=== PATIENT | female | born 1970 | race Caucasian/White ===

== ENCOUNTER 2024-02-16 18:10 | Emergency (ER) | payer OTHER, SELFPAY ==
[2024-02-16 18:17] VITALS: BP 143/85; PULSE 74; RESP 18; TEMP 36.6; O2SAT 98; BMI 30.1
--- NOTE | 2024-02-16 19:35 | ED.ABDPAIN ---
HPI - Abdominal Pain General Time Seen by Provider: 19:35 Date Seen: 02/16/24 Chief Complaint: Abdominal Pain Stated Complaint: abdomen pain Time Seen by Provider: 02/16/24 18:23 Source: patient Mode of arrival: ambulatory Limitations: no limitations History of Present Illness HPI narrative: Lety is a very pleasant 53-year-old female with known history of diverticulitis who comes to the emergency room with abdominal pain. Patient noted that she has had intermittent left lower quadrant discomfort over the past 5-7 days but definitely has intensified over the last 48 hours. It is associated with nausea but no vomiting or diarrhea. She does feel somewhat distended. Patient notes that she had a ?failed colonoscopy? 10 years ago and has not had colonoscopy since that time. A she states that they were unable to get past the upper year: Which she is showing me to be the splenic flexure. Because of this she thought she was unable to have colonoscopies. She has not had a fever but has felt intermittently hot and cold. She has never had a in abscess or any perforation. She was last hospitalized with diverticulitis in 2021. However she tells me that she does have intermittent episodes of left lower quadrant pain every few months that persists for a few days. Patient has not had any pain relief with Tylenol. Patient is concerned that she will be getting a yeast infection with antibiotic administration. No dysuria or hematuria. Related Data Home Medications ?Medication ?Instructions ?Recorded ?Confirmed No Known Home Medications 02/16/24 02/16/24 Previous Rx's ?Medication ?Instructions ?Recorded amoxicillin 875 mg-potassium 1 tab PO Q12H #14 tabs 02/16/24 clavulanate 125 mg tablet fluconazole 150 mg tablet 150 mg PO ONCE 1 day #2 tabs 02/16/24 hydrocodone 5 mg-acetaminophen 325 1 tab PO Q4-6H PRN pain #14 tabs 02/16/24 mg tablet ondansetron 4 mg disintegrating 4 mg PO Q8-12H PRN nausea and 02/16/24 tablet vomiting #10 tabs Allergies Allergy/AdvReac Type Severity Reaction Status Date / Time Sulfa Antibiotics Allergy Unknown Hives Uncoded 02/16/24 21:26 Review of Systems Status of ROS Reports: 10 or more systems reviewed and unremarkable except as noted in History and below Const Reports: chills; Denies: fever PFSH PFSH Social History Smoking Status: Unknown if ever smoked How often do you have a drink containing alcohol: never How often do you have six or more drinks on one occasion: Never AUDIT-C Alcohol total score: 0 Non-prescribed substance use: denies use Exam Narrative: Exam Narrative: Alert and oriented. Nontoxic in appearance but clearly fatigue. Ext ears eyes nose clear. Lips are dry. Moist mucous membranes. Neck is supple. Heart with regular rate and rhythm and lungs are clear bilaterally. Abdomen shows tenderness left lower quadrant. No CVA tenderness with percussion. Moving all extremities. No lower extremity edema. Const: Vital Signs, click to edit/add: Vital Signs - 24 hr 02/16/24 18:17 02/16/24 21:00 02/16/24 22:59 Temperature 97.9 F Pulse Rate [Pulse Oximeter] 74 95 97 Respiratory Rate 18 16 16 Blood Pressure [Ri ght Upper Arm] 143/85 H 141/91 H 126/83 Pulse Oximetry 98 95 97 Oxygen Delivery Me thod Room Air Room Air Room Air Documenting provider has reviewed patient's vital signs: yes Course Course ED Course: Differential diagnosis includes but is not limited to diverticulitis, colitis, perforation, ovarian cyst, urinary tract infection, pyelonephritis. Will place IV give 1 L normal saline Toradol 15 mg and Zofran 4 mg. Plan on CBC, comprehensive panel, CRP, urinalysis as well as abdominal CT. Reevaluation(s) Reevaluation #1: Patient had minimal to moderate relief with Toradol. Will follow up with morphine 4 mg IV. Patient also noted to have diverticulitis without perforation or abscess on CT. White count reassuring at 10.65. However CRP is elevated at 3.1. Will give 1 dose Rocephin 1 g IV as well as morphine 4 mg IV. Reevaluation #2: Per nursing report patient feeling better after morphine. Vital Signs Vital signs: Initial Vital Signs Temperature 97.9 F 02/16/24 18:17 Temperature Source Temporal Artery Scan 02/16/24 18:17 Pulse Rate 74 02/16/24 18:17 Respiratory Rate 18 02/16/24 18:17 Blood Pressure 143/85 H 02/16/24 18:17 Blood Pressure Mean 104 02/16/24 18:17 Pulse Oximetry 98 02/16/24 18:17 Oxygen Delivery Method Room Air 02/16/24 18:17 Vital Signs Temperature 97.9 F 02/16/24 18:17 Pulse Rate 74 02/16/24 18:17 Respiratory Rate 18 02/16/24 18:17 Blood Pressure 143/85 H 02/16/24 18:17 Pulse Oximetry 98 02/16/24 18:17 Oxygen Delivery Method Room Air 02/16/24 18:17 Temperature 97.9 F 02/16/24 18:17 Pulse Rate 97 02/16/24 22:59 Respiratory Rate 16 02/16/24 22:59 Blood Pressure 126/83 02/16/24 22:59 Pulse Oximetry 97 02/16/24 22:59 Oxygen Delivery Method Room Air 02/16/24 22:59 Medications Administered Medications: Discontinued Medications Generic Name Dose Route Start Last Admin Trade Name Freq PRN Reason Stop Dose Admin Sodium Chloride 1,000 mls @ 1,000 mls/hr 02/16/24 20:18 02/16/24 22:56 0.9 % Sodium Chloride 1000 Ml IV 02/16/24 21:17 Infused .Q1H JOSIE Infusion Ceftriaxone Sodium 1 gm/ 100 mls @ 200 mls/hr 02/16/24 22:49 02/16/24 23:32 Sodium Chloride IVPB 02/16/24 22:50 Infused ONCE ONE Infusion Ketorolac Tromethamine 15 mg 02/16/24 20:17 02/16/24 21:00 Ketorolac 15 Mg/Ml Inj IVP 02/16/24 20:18 15 mg ONCE ONE Administration Morphine Sulfate 4 mg 02/16/24 22:49 02/16/24 22:55 Morphine 4 Mg/Ml Inj IVP 02/16/24 22:50 4 mg ONCE ONE Administration Ondansetron HCl 4 mg 02/16/24 20:17 02/16/24 21:00 Ondansetron 2 Mg/Ml Inj IVP 02/16/24 20:18 4 mg ONCE ONE Administration MDM - Abdominal Pain MDM Narrative Medical decision making narrative: 1. Diverticulitis-patient noted to have uncomplicated diverticulitis. No evidence of abscess or perforation. I have treated with 1 g of IV Rocephin and patient will be discharged home with Augmentin 875 p.o. b.i.d. x7 days. I would ask patient to follow-up with our surgeons for evaluation. She will also need a colonoscopy as she has not had 1 for 10 days and it sounds like she is having recurrent diverticulitis at least every few months. For discomfort would have her use ibuprofen as needed and have provided her with [place] 5/325 1-2 tabs p.o. q.4-6 hours p.r.n. pain 14. With no refills. Finally Zofran 4 mg ODT Q 8-12 hours p.r.n. 10. With no refills. These 3 prescriptions were sent to her pharmacy. 2. Disposition-home at this time. Recommend returning to the emergency room for worsening symptoms such as fever, vomiting, increasing pain. Lab Data Attestation: I reviewed the patient's lab results. Labs: Lab Results 02/16/24 02/16/24 Range/Units 20:30 20:45 WBC 10.65 (4.50-11.00) K/uL RBC 4.57 (4.00-5.20) m/uL Hgb 13.3 (12.0-16.0) gm/dL Hct 40.2 (33.0-51.0) % MCV 88 (80-100) fL MCH 29 (26-34) pg MCHC 33 (32-36) gm/dL RDW Coeff of Allie 13.0 (11.5-15.5) % Plt Count 180 (140-440) K/uL Neut % (Auto) 75.5 H (42.0-72.0) % Lymph % (Auto) 16.4 L (20-44) % Jenkins % (Auto) 6.4 (0.0-11.0) % Eos % (Auto) 0.6 (0.0-7.0) % Baso % (Auto) 0.1 (0.0-3.0) % Neut # (Auto) 8.00 H (1.7-7.0) K/uL Lymph # (Auto) 1.70 (0.90-2.90) K/uL Jenkins # (Auto) 0.70 (0.00-0.90) K/UL Eos # (Auto) 0.06 (0.00-0.50) K/uL Baso # (Auto) 0.01 (0.00-0.30) K/uL Abs Immat Gran (auto) 0.11 (0.00-0.30) K/uL Imm/Tot Granulo (auto) 1.0 % Sodium 138 (135-149) mmol/L Potassium 3.7 (3.6-5.1) mmol/L Chloride 105 (96-114) mmol/L Carbon Dioxide 29 (20-32) mmol/L Anion Gap 4 L (7-15) mEq/L BUN 22 (7-30) mg/dL Creatinine 0.9 (0.5-1.5) mg/dL Estimated Creat Clear 59.11 Estimated GFR 76 ml/min Glucose 94 (60-115) mg/dL Lactate 0.7 (0.5-1.9) mmol/L Calcium 9.2 (8.4-10.6) mg/dL Total Bilirubin 0.9 (0.1-1.5) mg/dL AST 29 (12-35) U/L ALT 22 (4-35) U/L Alkaline Phosphatase 105 (40-150) U/L C-Reactive Protein 3.1 H (0.5-1.0) mg/dL Total Protein 7.3 (6.0-8.3) g/dL Albumin 4.7 (3.3-5.0) g/dL Urine Color Yellow (Yellow) Urine Appearance Clear (Clear) Urine pH 6.5 (5.0-8.5) Ur Specific [place] 1.010 (1.000-1.030) Urine Protein Negative (Negative) Urine Glucose (UA) Negative (Negative) Urine Ketones Negative (Negative) Urine Blood Negative (Negative) Urine Nitrite Negative (Negative) Urine Bilirubin Negative (Negative) Urine Urobilinogen 0.2 (0.2-1.0) Ur Leukocyte Esterase Negative (Negative) Urine RBC 0-2 (0-2) Urine WBC 0-2 (0-5) Ur Squamous Epith Cells None (None-Few) Urine Bacteria None (None) Imaging Data CT scan - abdomen: Attestation: I have reviewed the pertinent imaging results. Radiologist's impression: Lower chest: Lung bases are clear. Bilateral breast implants are noted, incompletely imaged. Liver: Within normal limits. Gallbladder and bile ducts: No gallbladder wall thickening or calcified gallstones. No biliary dilation identified. Pancreas: Unremarkable. Spleen: Normal. Adrenals: No nodules or masses. Kidneys, ureters, and urinary bladder: No renal masses or hydronephrosis. No bladder mass or definite wall thickening. Gastrointestinal tract: Normal caliber small bowel without wall thickening or obstruction. Appendix not identified. Multiple diverticula of the descending colon and sigmoid. The mid to distal sigmoid colon, situated in the cul-de-sac, has wall thickening with surrounding fat stranding, consistent with diverticulitis. Vascular structures: Normal caliber abdominal aorta with trace atherosclerotic calcification. Peritoneum: No free air, abscess, or significant free fluid. Lymph nodes: No pathologically enlarged nodes identified. Reproductive organs: Essure implants. No pelvic masses. Bones: Grade 1 spondylolisthesis at L4-5 and mild degenerative disc disease at this level. IMPRESSION: 1. Acute diverticulitis of the sigmoid colon. No evidence of bowel perforation or abscess. 2. Nonacute additional findings as detailed above. Discharge Plan Discharge Clinical Impression: Diverticulitis Patient Disposition: Home, Self-Care Condition: Improved Additional Instructions: Continue antibiotics tomorrow with amoxicillin. If you are not improving and started experiencing vomiting, fever, worsening pain you will need to return to the emergency room. Push fluids and try to stay hydrated. For pain you may use ibuprofen if you like. For pain not responsive to ibuprofen Vicodin may be used. Vicodin is a narcotic called hydrocodone combine with Tylenol. It can cause nausea. Recommend no driving or use of alcohol while using this medication. This can also cause constipation so you may want to start on a stool softener such as Colace. Zofran may be used for nausea. Follow-up with 1 of our surgeons for consultation. They will need to also schedule a colonoscopy at some point in the future. Please follow-up within the next 5-10 days. The phone number is [phone] Return as needed to the emergency room. Prescriptions: New ondansetron 4 mg tablet,disintegrating 4 mg PO Q8-12H PRN (Reason: nausea and vomiting) Qty: 10 0RF amoxicillin-pot clavulanate 875-125 mg tablet 1 tab PO Q12H Qty: 14 0RF hydrocodone-acetaminophen 5-325 mg tablet 1 tab PO Q4-6H PRN (Reason: pain) Qty: 14 0RF Rx Instructions: May use 1-2 tabs p.o. q.4-6 hours p.r.n. fluconazole 150 mg tablet 150 mg PO ONCE 1 Days Qty: 2 0RF Rx Instructions: May take 1 tab of Diflucan if you experience yeast infection. May repeat in 48-72 hours if not improved. No Action No Known Home Medications Follow Up/Referrals: Rosalinda Peguero MD [Primary Care Provider] - Stand Alone Forms: [employer] Info Instructions
--- NOTE | 2024-02-16 20:17 | CRLHL7_ITS ---
For Patients: As a result of the Cures Act, medical imaging exams and procedure reports are released immediately into your electronic medical record. You may view this report before your referring provider. If you have questions, please contact your health care provider. INDICATION: Left lower quadrant pain. Fever and nausea. Low back pain. History of diverticulitis. CT ABDOMEN AND PELVIS WITH CONTRAST TECHNIQUE: Multidetector CT imaging was performed through the abdomen and pelvis following intravenous contrast administration using 83 mL Isovue 370. Coronal and sagittal reconstructions were generated. COMPARISON: None. FINDINGS: Lower chest: Lung bases are clear. Bilateral breast implants are noted, incompletely imaged. Liver: Within normal limits. Gallbladder and bile ducts: No gallbladder wall thickening or calcified gallstones. No biliary dilation identified. Pancreas: Unremarkable. Spleen: Normal. Adrenals: No nodules or masses. Kidneys, ureters, and urinary bladder: No renal masses or hydronephrosis. No bladder mass or definite wall thickening. Gastrointestinal tract: Normal caliber small bowel without wall thickening or obstruction. Appendix not identified. Multiple diverticula of the descending colon and sigmoid. The mid to distal sigmoid colon, situated in the cul-de-sac, has wall thickening with surrounding fat stranding, consistent with diverticulitis. Vascular structures: Normal caliber abdominal aorta with trace atherosclerotic calcification. Peritoneum: No free air, abscess, or significant free fluid. Lymph nodes: No pathologically enlarged nodes identified. Reproductive organs: Essure implants. No pelvic masses. Bones: Grade 1 spondylolisthesis at L4-5 and mild degenerative disc disease at this level. IMPRESSION: 1. Acute diverticulitis of the sigmoid colon. No evidence of bowel perforation or abscess. 2. Nonacute additional findings as detailed above. RENÉ SHEETS MD [employer] Dictated by Shahbaz Sheets MD @ 02/16/2024 10:12:46 PM Please note that all CT scans at this facility use dose modulation, iterative reconstruction, and/or weight-based dosing when appropriate to reduce radiation dose to as low as reasonably achievable. Dictated by: Shahbaz Sheets MD @ 02/16/2024 22:13:12 (Electronically Signed)
[2024-02-16 20:53] LABS: Lactate* 0.7 mmol/L (0.5-1.9)
[2024-02-16 20:56] LABS: Basophils Absolute Auto 0.01 K/uL (0.00-0.30); Basophils Percent Auto 0.1 % (0.0-3.0); Eosinophils Absolute Auto 0.06 K/uL (0.00-0.50); Eosinophils Percent Auto 0.6 % (0.0-7.0); Hematocrit 40.2 % (33.0-51.0); Hemoglobin* 13.3 gm/dL (12.0-16.0); Immature Granulocytes Abs Auto 0.11 K/uL (0.00-0.30); Lymphocytes Percent Auto 16.4 % (20-44); Mean Corpuscular HGB Conc 33 gm/dL (32-36); Mean Corpuscular Hemoglobin 29 pg (26-34); Mean Corpuscular Volume 88 fL (80-100); Monocytes Percent Auto 6.4 % (0.0-11.0); Neutrophils Percent Auto 75.5 % (42.0-72.0); Platelet Count* 180 K/uL (140-440); Red Blood Count 4.57 m/uL (4.00-5.20); White Blood Count* 10.65 K/uL (4.50-11.00)
[2024-02-16 21:00] VITALS: BP 141/91; PULSE 95; RESP 16; O2SAT 95
[2024-02-16] MEDS: ONDANSETRON 2 MG/ML inj 4 MG IVP (21:00)
[2024-02-16] MEDS: KETOROLAC 15 MG/ML inj IVP (21:00)
[2024-02-16 21:04] LABS: Slide Review Reflex No
[2024-02-16 21:07] LABS: Appearance Urine Clear (Clear); Bilirubin Urine Negative (Negative); Blood Urine Negative (Negative); Color Urine Yellow (Yellow); Glucose Urine Negative (Negative); Ketones Urine Negative (Negative); Leukocyte Esterase Urine Negative (Negative); Nitrite Urine Negative (Negative); Protein Urine Negative (Negative); Urobilinogen Urine 0.2 (0.2-1.0); pH Urine 6.5 (5.0-8.5)
[2024-02-16 21:10] LABS: Albumin* 4.7 g/dL (3.3-5.0); Chloride* 105 mmol/L (96-114); Sodium* 138 mmol/L (135-149)
[2024-02-16 21:11] LABS: Potassium* 3.7 mmol/L (3.6-5.1)
[2024-02-16 21:13] LABS: Alkaline Phosphatase* 105 U/L (40-150); Anion Gap 4 mEq/L (7-15); Aspartate Amino Transferase* 29 U/L (12-35); Bilirubin Total* 0.9 mg/dL (0.1-1.5); Carbon Dioxide* 29 mmol/L (20-32); Creatinine* 0.9 mg/dL (0.5-1.5); Est. Creatinine Clearance* 59.11; Estimated Glomerular Filt Rate 76 ml/min; Total Protein* 7.3 g/dL (6.0-8.3)
[2024-02-16 21:14] LABS: Alanine Aminotransferase* 22 U/L (4-35); Blood Urea Nitrogen* 22 mg/dL (7-30); Calcium* 9.2 mg/dL (8.4-10.6); Glucose* 94 mg/dL (60-115)
[2024-02-16 21:16] LABS: C Reactive Protein* 3.1 mg/dL (0.5-1.0)
[2024-02-16 21:22] LABS: RBC Urine 0-2 (0-2); WBC Urine 0-2 (0-5)
[2024-02-16] MEDS: 0.9 % SODIUM CHLORIDE 1000 ml 1,000 ML IV (21:57)
[2024-02-16] MEDS: MORPHINE 4 MG/ML INJ IVP (22:55)
[2024-02-16] MEDS: cefTRIAXone 1 GM in 0.9 % SODIUM CHLORIDE Mini-bag 100 ML IVPB (22:55)
[2024-02-16 22:59] VITALS: BP 126/83; PULSE 97; RESP 16; O2SAT 97
== END 2024-02-16 23:40 | disposition home or self-care (01) ==
PROVIDERS: Emergency Provider Family Medicine; PCP Family Medicine
DX: K57.92 Diverticulitis of intestine, part unspecified, without perforation or abscess without bleeding (principal)
CPT/HCPCS: 36415; 74177; 80053; 81001; 83605; 85025; 86140; 96365; 96375; 99284; 99285; J0696; J1885; J2270; J2405; J7030; Q9967

== ENCOUNTER 2024-09-28 16:06 | Outpatient (CLI) | payer OTHER, SELFPAY | END 2024-09-28 16:07 | disposition home or self-care (01) | PROVIDERS: PCP Family Medicine; Visit Provider Registered Nurse | DX: R53.83 Other fatigue (principal); Z13.228 Encounter for screening for other metabolic disorders; Z13.220 Encounter for screening for lipoid disorders; Z13.0 Encounter for screening for diseases of the blood and blood-forming organs and certain disorders involving the immune mechanism; Z13.29 Encounter for screening for other suspected endocrine disorder | CPT/HCPCS: 80053; 80061; 82728; 84443 ==

== ENCOUNTER 2025-01-13 21:37 | Emergency (ER) | payer OTHER, SELFPAY ==
--- OUTSIDE RECORDS SUMMARY | 2025-01-13 21:39 | XMS_ITS | Clinical Summary ---
Author Organization [facility] Address [address] [place] [address] Care Team Providers Care Driver/Guide Name Role Phone Rosalinda Peguero MD Primary Care Provider [phone] Allergies Active Allergy Reactions Criticality Noted Date Comments Sulfa (Sulfonamide Antibiotics) Hives 03/14 Medications multivitamin (MVI) tablet Take 1 tablet by mouth once daily. 0 12/18/2014 Active Active Problems Problem Noted Date Diagnosed Date BMI 30.0-30.9,adult 10/25/2018 Allergy 12/18/2014 Chronic cough 12/18/2014 Cervical cancer screening 12/18/2014 Overview (12/18/2014): With Dr. Suárez. Rosalinda Peguero MD .................... 12/18/2014 3:06 PM Diverticulitis 04/20/2014 Immunizations Immunization Administration Dates Next Due Hepatitis A (Adult) 04/30/2015,10/05/2014 Td (Age >=7 Years) 08/29/2002 Tdap 10/15/2010 Family History Medical History Relation Name Comments Diabetes Father Gout Father Heart Disease Father Hypertension Father Cancer Maternal Aunt pancreatic Stroke Maternal Grandfather Diabetes Mother Hypertension Mother Cancer Paternal Aunt 1 breast Cancer Paternal Aunt 2 breast Cancer-breast Paternal Aunt 3 Relation Name Status Comments Father Maternal Aunt Maternal Grandfather Mother Paternal Aunt 1 Paternal Aunt 2 Paternal Aunt 3 Social History Tobacco Use Types Packs/Day Years Used Date Smoking Tobacco: Never Smokeless Tobacco: Never Tobacco Cessation:Counseling Given: Yes Alcohol Use Standard Drinks/Week Comments No 0 (1 standard drink = 0.6 oz pur e alcohol) PHQ-2 Answer Date Recorded PHQ-2 TOTAL SCORE 0 10/11/2020 Social Connections Answer Date Recorded Frequency of Communication with Friends and Fami ly Not on file 02/13/2024 Financial Resource Strain Answer Date R ecorded Difficulty of Paying Living Expenses 3 07/02/2023 Difficulty of Paying Living Expenses Not on file 07/02/2023 Food Insecurity Answer Date Recorded Worried About Running Out of Food in the Last Ye ar 1 07/02/2023 Transportation Needs Answer Date Record ed Lack of Transportation (Medical) 1 07/02/2023 Housing Stability Answer Date Recorded Unable to Pay for Housing in the Last Year 1 07/02/2023 Comments No Sex and Gender Information Value Date Recorded Sex Assigned at Not on file Legal Sex Female 5:23 AM SPIRITUAL MINISTER Gender Identity Not on file Sexual Orientation Not on file Occupation Industry Job Start Date Job End Date [employer] Not on file Not on file Not on file Not on file Not on file Not on file Not on file Obstetrics History Last Filed Vital Signs Vital Sign Reading Time Taken Comments Blood Pressure 131/73 09/19/2024 4:06 PM SPIRITUAL MINISTER Pulse 83 09/19/2024 4:06 PM SPIRITUAL MINISTER Temperature 36.9 C (98.5 F) 09/19/2024 4:06 PM SPIRITUAL MINISTER Respiratory Rate 16 09/19/2024 4:06 PM SPIRITUAL MINISTER Oxygen Saturation 99% 09/19/2024 4:06 PM SPIRITUAL MINISTER Inhaled Oxygen Concentration - - Weight 84.8 kg (187 lb) 09/19/2024 4:06 PM SPIRITUAL MINISTER Height 162.6 cm (5' 4) 01/20/2022 12:57 AM CDT Body Mass Index 32.1 01/20/2022 12:57 AM CDT Plan of Treatment Health Maintenance Due Date Last Done Comments HIV for age 15-65 1984 Hepatitis C screening for ag e 18-79 1987 Colonoscopy through age 75 2014 Mammogram for age 45-75 2014 Pneumococcal series for age 50+ (1 of 1 - PCV) 2019 Zoster (shingles) series for age 50+ (1 of 2) 2019 Tetanus booster 10/15/2020 10/15/2010, 08/29/2002 BMI (ht and wt on same day) for age 18+ 10/11/2021 10/11/2020, 11/11/2019, 08/05/2019, Additional history exists Depression screening for age 12+ 10/11/2021 10/11/2020, 12/02/2018, 12/01/2018, Additional history exists COVID-19 vaccine series ( season) 2024 11/22/2020, 10/25/2020 Influenza Vaccine (Season Ended) 2025 Lipids for age 45-75 10/11/2025 10/11/2020 Pap test for age 21-65 04/11/2029 , 04/11/2024, 12/01/2018, Additional history exists Tdap Completed 10/15/2010 Medical Devices Implanted Type Area Rebar Worker Device Identifier Shelf Expiration Date Model / Serial / Lot [id number] breast 375cc Memorygel Rnd Moderate Plus Smooth Silcn [[id number]] Implanted:Qty: 1 on 04/18/2017 by Jamarcus Kilgore MD at [facility] Explanted:at [facility] (Quantity not on file) Right: Breast [employer] 06/07/2020 [id number] # / [id number] breast 375cc Memorygel Rnd Moderate Plus Smooth Silcn Implanted:Qty: 1 on 04/18/2017 by Jamarcus Kilgore MD at [facility] Explanted:at [facility] (Quantity not on file) Left: Breast [employer] 04/09/2021 [id number] # / [id number] / [id number] Procedures Procedure Name Priority Date/Time Associated Diagnosis Comments HPV HIGH RISK Routine 04/11/2024 12:00 PM CDT LIPID PANEL W REFLEX MEASURED LDL Routine 10/11/2020 3:17 PM SPIRITUAL MINISTER Lipid screening from Last 3 Months or Most Recently Relevant to Health Maintenance Results * HPV HIGH RISK (04/11/2024 12:00 PM CDT) TYPE 16 Negative Negative 04/15/2024 2:34 PM CDT [facility] TYPE 18 Negative Negative 04/15/2024 2:34 PM CDT [facility] TRA LABORATORY OTHER HIGH RISK TYPES Negative Negative 04/15/2024 2:34 PM CDT [facility] Other (Cervical) 04/11/2024 12:00 PM CDT 04/14/2024 9:16 AM CDT [facility] LAB[facility] - 04/15/2024 2:34 PM CDT HPV types 16, 18, 31, 33, 35, 39, 45, 51, 52, 56, 58, 59, 66 and 68 DNA were undetectable or below the pre-set threshold. Methodology: [employer] 4800 HPV Test us Jaja Maldonado MD MICROBIOLOGY Final Resu lt [facility] [address] [place] [address], * (ABNORMAL) LIPID PANEL W REFLEX MEASURED LDL (10/11/2020 3:17 PM SPIRITUAL MINISTER) CHOLESTEROL,TOTAL 203(H) 100 - 199 mg/dL 10/11/2020 4:13 PM SPIRITUAL MINISTER [facility] TRIGLYCERIDES 128 <150 mg/dL 10/11/2020 4:13 PM SPIRITUAL MINISTER [facility] HDL CHOLESTEROL 45 >40 mg/dL 4:13 PM SPIRITUAL MINISTER [facility] NON-HDL CHOLESTEROL 158(H) <145 mg/dl 10/11/2020 4:13 PM SPIRITUAL MINISTER [facility] CHOL/HDL RATIO 4.51(H) <4.50 10/11/2020 4:13 PM [facility] LDL CHOLESTEROL 132(H) <=130 mg/dL 10/11/2020 4:13 PM SPIRITUAL MINISTER [facility] PROVIDER ORDERED STATUS RANDOM 10/11/2020 4:13 PM [facility] Blood BLOOD SPECIMEN / Unknown Venipuncture / Unknown 10/11/2020 3:17 PM SPIRITUAL MINISTER 10/11/2020 3:20 PM SPIRITUAL MINISTER Rosalinda Peguero MD CHEMISTRY Final Result [facility] [address] [place] [address] from Last 3 Months or Most Recently Relevant to Health Maintenance Insurance [employer]EYAD JONES [employer] [id number] [facility] [employer]EYAD JONES [employer]ULETT[employer]EPHANIE LOVE [id number] [facility] SHARED SERVICES [facility] SH[facility] Advance Directives * Full Code (Latest Code Status on File) Date Activated Date Inactivated Comments 04/18/2017 6:02 AM 04/19/2017 2:27 AM * Full Code Date Activated Date Inactivated Comments 04/04/2014 1:13 PM 04/04/2014 5:37 PM * Full Code Date Activated Date Inactivated Comments 04/03/2014 6:59 PM 04/04/2014 1:13 PM Care Teams Driver/Guide Relationship Specialty Start Date End Date Rosailnda Peguero MD [address] [facility] [place] [place] [id number] PCP - General Family Practice 03/28/13
[2025-01-13 21:59] VITALS: BP 142/89; PULSE 94; RESP 16; TEMP 36.8; O2SAT 97; BMI 30.1
--- NOTE | 2025-01-13 22:25 | ED_ITS ---
HPI - Abdominal Pain General Time Seen by Provider: 22:25 Date Seen: 01/13/25 Chief Complaint: Abdominal Pain Stated Complaint: Diverticulitis flareup Time Seen by Provider: 01/13/25 22:25 Source: patient, RN notes reviewed and old records reviewed Mode of arrival: ambulatory Limitations: no limitations History of Present Illness HPI narrative: This 54-year-old female is coming in health system with report of recurrent diverticulitis. She has had abdominal pain starting Thursday morning, today is Thursday night. She has tried Tylenol but it is no longer controlling the pain. She has more constipation, no diarrhea, no blood in her stools. She has had nausea but no vomiting. She has left-sided abdominal pain consistent with prior diverticular episodes. She states she was treated in September, prior to that we saw her in the ER in February of last summer. She was treated with Augmentin. She had a colonoscopy years ago that they could not get through the sigmoid reportedly. She is had prior LEEP, ovarian cystectomy, appendectomy reportedly. She states she attempted to get into the clinic but could not get in for 2 weeks. Symptoms were getting bad enough that she knew she needed to come to the ED. MD elicited complaint: abdominal pain Related Data Previous Rx's ?Medication ?Instructions ?Recorded fluconazole 150 mg tablet 150 mg PO ONCE 1 day #2 tabs 02/16/24 Allergies Allergy/AdvReac Type Severity Reaction Status Date / Time Sulfa (Sulfonamide Allergy Intermediate Hives Verified 01/13/25 22:59 Antibiotics) Review of Systems Status of ROS Reports: 6 or more systems reviewed and unremarkable except as noted in History and below PFSH PFSH Surgical History History of sigmoidoscopy (04/04/14) ?Z98.890 - Other specified postprocedural states (ICD-10) History of vaginal delivery History of female sterilization ?Z98.890 - Other specified postprocedural states (ICD-10) H/O LEEP (~2003) ?Z98.890 - Other specified postprocedural states (ICD-10) History of ovarian cystectomy (~1984) ?Z98.890 - Other specified postprocedural states (ICD-10) ?Z87.42 - Personal history of other diseases of the female genital tract (ICD-10) History of colposcopy (06/17/01) ?Z98.890 - Other specified postprocedural states (ICD-10) History of augmentation mammoplasty (~06/1999) ?Z98.82 - Breast implant status (ICD-10) History of appendectomy (~1984) ?Z90.49 - Acquired absence of other specified parts of digestive tract (ICD- 10) Family History Father High blood pressure Diabetes Heart disease Gout Mother High blood pressure Diabetes Aunt Uterine cancer Breast cancer Ovarian cancer Maternal Grandfather Stroke Aunt Pancreatic cancer Social History Narrative: , 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 Smoking Status: Never smoker Do you use any of these nicotine containing products: None Second hand tobacco smoke exposure: No How often do you have a drink containing alcohol: never How often do you have six or more drinks on one occasion: Never AUDIT-C Alcohol total score: 0 Non-prescribed substance use: denies use Are you now , , , , never or living with a partner: Social isolation score (0-1 are the most socially isolated patients): 1 Do you think of yourself as: straight/heterosexual Gender Identity: female Are you currently sexually active: Yes In the past 12 months, how many sex partners have you had: one Exam Const: Vital Signs, click to edit/add: Vital Signs - 24 hr 01/13/25 21:59 Temperature 98.3 F Pulse Rate [Left P ulse Oximeter] 94 Respiratory Rate 16 Blood Pressure [Ri ght Upper Arm] 142/89 H Pulse Oximetry 97 Oxygen Delivery Me thod Room Air This 54 year old female is alert, interactive, no apparent distress. Seen exam room 2. Sclera clear, face atraumatic, speaking complete sentences. Lungs clear come good air entry, no tachypnea, no accessory muscle use. CV regular rate and rhythm, no murmur, normal S1-S2, no S3-S4. Abdomen is mildly distended per patient, i.e. do not feel there is significant distension, bowel sounds are present. She is very tender along the left upper to left side of her abdomen no rebound or guarding, do not feel any organomegaly or masses. Documenting provider has reviewed patient's vital signs: yes Course Course ED Course: I have recommended to patient that we proceed with CT imaging for further characterization of her intra-abdominal pain. It certainly could be diverticulitis. Could be atypical presentation of partial bowel obstruction, want to make sure that there was no complication like an abscess. Have discussed with her that I really think if this is diverticulitis that she needs to follow up with General surgery for further recommendations. She has had multiple bouts and it is possible she may be a surgical candidate for resection of an area. She really needs to talk to General surgery regarding her options and recommendations. Will do labs, do IV Unasyn dose if this is recurrent di verticulitis. Reevaluation(s) Time of Reevaluation #1: 22:49 Reevaluation #1: After I left the room, patient did talk to nursing staff and did request morphine and Zofran. Will certainly provide this. She remembers the Toradol did not help her last summer. Time of Reevaluation #2: 23:15 Reevaluation #2: Have reviewed with patient her CT report. She will be given a dose of Unasyn. We are still awaiting her labs to come back. If labs are stable, plan will be to discharge with oral Augmentin. Time of Reevaluation #3: 00:11 Reevaluation #3: We have reviewed her labs, C-reactive protein is mildly elevated but basic metabolic panel and CBC are reassuring. She has completed the Unasyn. We discussed discharge to home, will give her Augmentin and tramadol if they have this in [facility]. She feels she does need some pain management but would prefer to stick with a lower level narcotic. Fifteen tablets of tramadol given, that is the smallest amount possible. The Augmentin is 875 mg twice a day for 10 days. Vital Signs Vital signs: Initial Vital Signs Temperature 98.3 F 01/13/25 21:59 Temperature Source Temporal Artery Scan 01/13/25 21:59 Pulse Rate 94 01/13/25 21:59 Respiratory Rate 16 01/13/25 21:59 Blood Pressure 142/89 H 01/13/25 21:59 Blood Pressure Mean 106 H 01/13/25 21:59 Blood Pressure Position Sitting 01/13/25 21:59 Pulse Oximetry 97 01/13/25 21:59 Oxygen Delivery Method Room Air 01/13/25 21:59 Vital Signs Temperature 98.3 F 01/13/25 21:59 Pulse Rate 94 01/13/25 21:59 Respiratory Rate 16 01/13/25 21:59 Blood Pressure 142/89 H 01/13/25 21:59 Pulse Oximetry 97 01/13/25 21:59 Oxygen Delivery Method Room Air 01/13/25 21:59 Temperature 98.3 F 01/13/25 21:59 Pulse Rate 94 01/13/25 21:59 Respiratory Rate 16 01/13/25 21:59 Blood Pressure 142/89 H 01/13/25 21:59 Pulse Oximetry 97 01/13/25 21:59 Oxygen Delivery Method Room Air 01/13/25 21:59 Medications Administered Medications: Discontinued Medications Generic Name Dose Route Start Last Admin Trade Name Freq PRN Reason Stop Dose Admin Sodium Chloride 500 mls @ 500 mls/hr 01/13/25 22:31 01/13/25 23:26 0.9 % Sodium Chloride 500 Ml IV 01/13/25 23:30 Infused .Q1H ONE Infusion Ampicillin Sodium/Sulbactam 100 mls @ 200 mls/hr 01/13/25 23:14 01/13/25 23:51 Sodium 3 gm/ Sodium Chloride IVPB 01/13/25 23:15 Infused ONCE ONE Infusion Morphine Sulfate 4 mg 01/13/25 22:49 01/13/25 23:01 Morphine 4 Mg/Ml Inj IVP 01/13/25 22:50 4 mg ONCE ONE Administration Ondansetron HCl 4 mg 01/13/25 22:49 01/13/25 23:01 Ondansetron 2 Mg/Ml Inj IVP 01/13/25 22:50 4 mg ONCE ONE Administration MDM - Abdominal Pain Lab Data Attestation: I reviewed the patient's lab results. Labs: Lab Results 01/13/25 Range/Units 22:40 WBC 9.30 (4.50-11.00) K/uL RBC 4.34 (4.00-5.20) m/uL Hgb 12.7 (12.0-16.0) gm/dL Hct 38.4 (33.0-51.0) % MCV 89 (80-100) fL MCH 29 (26-34) pg MCHC 33 (32-36) gm/dL RDW Coeff of Allie 12.9 (11.5-15.5) % Plt Count 179 (140-440) K/uL Neut % (Auto) 71.6 (42.0-72.0) % Lymph % (Auto) 16.9 L (20-44) % [place] % (Auto) 8.7 (0.0-11.0) % Eos % (Auto) 1.5 (0.0-7.0) % Baso % (Auto) 0.1 (0.0-3.0) % Neut # (Auto) 6.66 (1.7-7.0) K/uL Lymph # (Auto) 1.60 (0.90-2.90) K/uL [place] # (Auto) 0.80 (0.00-0.90) K/UL Eos # (Auto) 0.14 (0.00-0.50) K/uL Baso # (Auto) 0.01 (0.00-0.30) K/uL Abs Immat Gran (auto) 0.11 (0.00-0.30) K/uL Imm/Tot Granulo (auto) 1.2 % Sodium 139 (135-149) mmol/L Potassium 3.6 (3.6-5.1) mmol/L Chloride 102 (96-114) mmol/L Carbon Dioxide 27 (20-32) mmol/L Anion Gap 10 (7-15) mEq/L BUN 22 (7-30) mg/dL Creatinine 0.9 (0.5-1.5) mg/dL Estimated Creat Clear 58.42 Estimated GFR 76 ml/min Glucose 110 (60-115) mg/dL Lactate 1.1 (0.5-1.9) mmol/L Calcium 9.5 (8.4-10.6) mg/dL C-Reactive Protein 4.1 H (0.5-1.0) mg/dL Imaging Data CT scan - abdomen: Attestation: I have reviewed the pertinent imaging results. Radiologist's impression: Patient: [facility] Facility:?[facility] Patient ID:?[id number] Site Patient ID:?[id number]. Site :?[id number] Study:?CT-Abdomen/Pelvis 83CC ISOVUE 370-01/13/2025 11:01:51 PM Ordering Physician:Adan Strange Final Report: INDICATION: Left-sided abdominal pain. TECHNIQUE: CT abdomen and pelvis acquired with 83 cc Isovue 370 IV contrast. COMPARISON: CT abdomen and pelvis 01/20/2022. FINDINGS: Lower chest: Unremarkable. Liver: Unremarkable. Gallbladder and bile ducts: Unremarkable. Pancreas: Unremarkable. Spleen: Unremarkable. Adrenal glands: Unremarkable. Kidneys: Symmetric renal enhancement. No hydronephrosis or hydroureter. No urinary calculi. GI tract: Region are prominent sigmoid colonic wall thickening (series 2, image 101) with pericolonic fat stranding and probable inflamed regional diverticulum (image 97). No well-delineated pericolonic fluid collection/abscess. No bowel obstruction. No CT evidence of acute appendicitis. Vasculature: No abdominal aortic aneurysm. Grossly patent vasculature. Lymph nodes: No suspicious lymphadenopathy. Peritoneum/Abdominal Wall: No ascites or pneumoperitoneum. No acute abdominal wall abnormality. Pelvis: Normal bladder. Unchanged position of bilateral fallopian occlusion devices. No suspicious adnexal mass. Bones: No acute abnormality. IMPRESSION: 1. Acute sigmoid colonic diverticulitis. No well-delineated pericolonic fluid collection/abscess. Recommend evaluation with colonoscopy upon symptom r esolution to exclude underlying neoplasm in this region. Please note that all CT scans at this facility use dose modulation, iterative reconstruction, and/or weight-based dosing when appropriate to reduce radiation dose to as low as reasonably achievable. Dictated by Dandre Spencer MD @ 01/13/2025 11:12:34 PM (Electronic Signature) Discharge Plan Discharge Clinical Impression: Diverticulitis Patient Disposition: Home, Self-Care Condition: Stable Instructions: Diverticulitis (ED), Diverticulitis Diet (ED) Additional Instructions: Start Augmentin in the morning and take as prescribed. Can use the tramadol 50 mg, 1 tablet every 6-8 hours as needed for more severe pain. Baseline can use Tylenol 1000 mg 3 times a day for pain. Can supplement with ibuprofen per bottle directions. Both of these can be used with the tramadol. Recommend follow up in clinic within the next 1-2 weeks, have clinic place referral for consultation with General surgery regarding recurrent diverticulitis. If you are not improving with the outlined antibiotics, have increasing abdominal pain, develops vomiting, feel you are worsening, please return to the ER for further evaluation. You should follow a low residue diet through this illness, once you have improved and are feeling better, can return to a high-fiber diet. Activity Level: Activity as Tolerated Prescriptions: No Action fluconazole 150 mg tablet 150 mg PO ONCE 1 Days Qty: 2 0RF Rx Instructions: May take 1 tab of Diflucan if you experience yeast infection. May repeat in 48-72 hours if not improved. Follow Up/Referrals: Maria Ines Payne, OPERATING ROOM TECHNICIAN [Primary Care Provider] - Stand Alone Forms: [employer] Info Instructions
--- NOTE | 2025-01-13 22:31 | CRLHL7_ITS ---
For Patients: As a result of the Century Cures Act, medical imaging exams and procedure reports are released immediately into your electronic medical record. You may view this report before your referring provider. If you have questions, please contact your health care provider. INDICATION: Left-sided abdominal pain. TECHNIQUE: CT abdomen and pelvis acquired with 83 cc Isovue 370 IV contrast. COMPARISON: CT abdomen and pelvis 01/20/2022. FINDINGS: Lower chest: Unremarkable. Liver: Unremarkable. Gallbladder and bile ducts: Unremarkable. Pancreas: Unremarkable. Spleen: Unremarkable. Adrenal glands: Unremarkable. Kidneys: Symmetric renal enhancement. No hydronephrosis or hydroureter. No urinary calculi. GI tract: Region are prominent sigmoid colonic wall thickening (series 2, image 101) with pericolonic fat stranding and probable inflamed regional diverticulum (image 97). No well-delineated pericolonic fluid collection/abscess. No bowel obstruction. No CT evidence of acute appendicitis. Vasculature: No abdominal aortic aneurysm. Grossly patent vasculature. Lymph nodes: No suspicious lymphadenopathy. Peritoneum/Abdominal Wall: No ascites or pneumoperitoneum. No acute abdominal wall abnormality. Pelvis: Normal bladder. Unchanged position of bilateral fallopian occlusion devices. No suspicious adnexal mass. Bones: No acute abnormality. IMPRESSION: 1. Acute sigmoid colonic diverticulitis. No well-delineated pericolonic fluid collection/abscess. Recommend evaluation with colonoscopy upon symptom resolution to exclude underlying neoplasm in this region. Please note that all CT scans at this facility use dose modulation, iterative reconstruction, and/or weight-based dosing when appropriate to reduce radiation dose to as low as reasonably achievable. Dictated by Dandre Spencer MD @ 01/13/2025 11:12:34 PM (Electronically Signed)
--- OUTSIDE RECORDS SUMMARY | 2025-01-13 22:36 | XMS_ITS | Clinical Summary ---
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 [employer] Gender Identity Not on file Sexual Orientation Not on file Occupation Industry Job Start Date Job End Date [employer] Not on file Not on file Not on file Not on file Not on file Not on file Not on file Obstetrics History Last Filed Vital Signs Vital Sign Reading Time Taken Comments Blood Pressure 131/73 09/19/2024 4:06 PM [employer] Pulse 83 09/19/2024 4:06 PM [employer] Temperature 36.9 C (98.5 F) 09/19/2024 4:06 PM [employer] Respiratory Rate 16 09/19/2024 4:06 PM [employer] Oxygen Saturation 99% 09/19/2024 4:06 PM [employer] Inhaled Oxygen Concentration - - Weight 84.8 kg (187 lb) 09/19/2024 4:06 PM [employer] Height 162.6 cm (5' 4) 01/20/2022 12:57 [...] Completed 10/15/2010 Medical Devices Implanted Type Area Fulling Machine Operator Device Identifier Shelf Expiration Date Model / Serial / Lot [id number] breast 375cc Memorygel Rnd Moderate Plus Smooth Silcn [[id number]] Implanted:Qty: 1 on 04/18/2017 by Jamarcus Kilgore MD at [facility] Explanted:at [facility] (Quantity not on file) Right: Breast [employer] hetras 06/07/2020 [id number] # / [id number] breast 375cc Memorygel Rnd Moderate Plus Smooth Silcn Implanted:Qty: 1 on 04/18/2017 by Jamarcus Kilgore MD at [facility] Explanted:at [facility] (Quantity not on file) Left: Breast [employer] hetras 04/09/2021 [id number] # / [id number] / [id number] Procedures Procedure Name Priority Date/Time Associated Diagnosis Comments HPV HIGH RISK Routine 04/11/2024 12:00 PM CDT LIPID PANEL W REFLEX MEASURED LDL Routine 10/11/2020 3:17 PM C[employer] Lipid screening from Last 3 Months or Most Recently Relevant to Health Maintenance Results * HPV HIGH RISK (04/11/2024 12:00 PM CDT) TYPE 16 Negative Negative 04/15/2024 2:34 PM CDT [facility] TRAL LABORATORY TYPE 18 Negative Negative 04/15/2024 2:34 PM CDT [facility] TRA LABORATORY OTHER HIGH RISK TYPES Negative Negative 04/15/2024 2:34 PM CDT [facility] LABOR[facility] Other (Cervical) 04/11/2024 12:00 PM CDT 04/14/2024 9:[address] [facility] LABORATORY - 04/15/2024 2:34 PM CDT HPV types 16, 18, 31, 33, 35, 39, 45, 51, 52, 56, 58, 59, 66 and 68 DNA were undetectable or below the pre-set threshold. Methodology: [employer] 4800 HPV Test us Jaja Maldonado MD MICROBIOLOGY Final Resu lt [facility] [address] [place] [address], * (ABNORMAL) LIPID PANEL W REFLEX MEASURED LDL (10/11/2020 3:17 PM [employer]) CHOLESTEROL,TOTAL 203(H) 100 - 199 mg/dL 10/11/2020 4:13 PM CEMENTER HAND [facility] TRIGLYCERIDES 128 <150 mg/dL 10/11/2020 4:13 PM [employer] [facility] HDL CHOLESTEROL 45 >40 mg/dL 4:13 PM [employer] [facility] NON-HDL CHOLESTEROL 158(H) <145 mg/dl 10/11/2020 4:13 PM C[employer]ER [employer] [facility] CHOL/HDL RATIO 4.51(H) <4.50 10/11/2020 4:13 PM [facility] LDL CHOLESTEROL 132(H) <=130 mg/dL 10/11/2020 4:13 PM CEMENTER HAND [facility] PROVIDER ORDERED STATUS RANDOM 10/11/2020 4:13 PM [facility] Blood BLOOD SPECIMEN / Unknown Venipuncture / Unknown 10/11/2020 3:17 PM [employer] 10/11/2020 3:20 PM C[employer]ER HAND Rosalinda Peguero MD CHEMISTRY Final Result [facility] [address] [facility] [place] [address] from Last 3 Months or Most Recently Relevant to Health Maintenance Insurance ZEYAD JONES PAULETTESTEPHANIE LOVE [id number] [facility] [employer]EYAD [employer]ONES [employer]ULE[employer]EPHANIE [employer] [id number] [facility] SHAR[facility] Advance Directives * Full Code (Latest Code Status on File) Date Activated Date Inactivated Comments 04/18/2017 6:02 AM 04/19/2017 2:27 AM * Full Code Date Activated Date Inactivated Comments 04/04/2014 1:13 PM 04/04/2014 5:37 PM * Full Code Date Activated Date Inactivated Comments 04/03/2014 6:59 PM 04/04/2014 1:13 PM Care Teams Aircraft Detail Draftsperson Relationship Specialty Start Date End Date Rosalinda Peguero MD [address] [facility] Fabianoluc[address] STEPHANIE CERDA [id number] PCP - General Family Practice 03/28/13
[2025-01-13] MEDS: 0.9 % SODIUM CHLORIDE 500 ML 500 ML IV (22:41)
[2025-01-13 22:48] LABS: Lactate* 1.1 mmol/L (0.5-1.9)
[2025-01-13] MEDS: MORPHINE 4 MG/ML INJ IVP (23:01)
[2025-01-13] MEDS: ONDANSETRON 2 MG/ML inj 4 MG IVP (23:01)
[2025-01-13 23:04] LABS: Basophils Absolute Auto 0.01 K/uL (0.00-0.30); Basophils Percent Auto 0.1 % (0.0-3.0); Eosinophils Absolute Auto 0.14 K/uL (0.00-0.50); Eosinophils Percent Auto 1.5 % (0.0-7.0); Hematocrit 38.4 % (33.0-51.0); Hemoglobin* 12.7 gm/dL (12.0-16.0); Immature Granulocytes Abs Auto 0.11 K/uL (0.00-0.30); Immature Granulocytes Pct Auto 1.2 %; Lymphocytes Percent Auto 16.9 % (20-44); Mean Corpuscular HGB Conc 33 gm/dL (32-36); Mean Corpuscular Hemoglobin 29 pg (26-34); Mean Corpuscular Volume 89 fL (80-100); Monocytes Percent Auto 8.7 % (0.0-11.0); Neutrophils Absolute Auto 6.66 K/uL (1.7-7.0); Neutrophils Percent Auto 71.6 % (42.0-72.0); Platelet Count* 179 K/uL (140-440); RDW Coefficient of Variation % 12.9 % (11.5-15.5); Red Blood Count 4.34 m/uL (4.00-5.20)
[2025-01-13 23:09] LABS: Chloride* 102 mmol/L (96-114); Potassium* 3.6 mmol/L (3.6-5.1); Sodium* 139 mmol/L (135-149)
[2025-01-13 23:12] LABS: Anion Gap 10 mEq/L (7-15); Blood Urea Nitrogen* 22 mg/dL (7-30); Calcium* 9.5 mg/dL (8.4-10.6); Carbon Dioxide* 27 mmol/L (20-32); Creatinine* 0.9 mg/dL (0.5-1.5); Est. Creatinine Clearance* 58.42; Estimated Glomerular Filt Rate 76 ml/min; Glucose* 110 mg/dL (60-115)
[2025-01-13 23:15] LABS: C Reactive Protein* 4.1 mg/dL (0.5-1.0)
[2025-01-13] MEDS: AMPICILLIN/SULBACTAM 3 GM in 0.9 % SODIUM CHLORIDE Mini-bag 100 ML IVPB (23:23)
[2025-01-13 23:25] LABS: Slide Review Reflex No
== END 2025-01-14 00:29 | disposition home or self-care (01) ==
PROVIDERS: Emergency Provider Family Medicine; PCP Registered Nurse
DX: K57.30 Diverticulosis of large intestine without perforation or abscess without bleeding (principal)
CPT/HCPCS: 36415; 74177; 80048; 83605; 85025; 86140; 96365; 96375; 99284; J0295; J2270; J2405; J7030; Q9967